=== PATIENT | female | born 1970 | race Caucasian/White ===

== ENCOUNTER 2017-07-07 06:26 | Day surgery (SDC) | payer OTHER ==
[~2017-07-07] VITALS: Ht 162.6 cm; Wt 93.0 kg
--- NOTE | ~2017-07-07 | OP ---
Record Of Operation [facility] [address] [place]. [address] NAME: FACUNDO : 74 STATUS : [facility]#: [id number] AGE: 46 ADM/REG DATE : 07/07/17 MR#: [id number] REPORT SERV DATE: 07/11/17 DICTATED BY: LIZ CARRASCO DATE: 07/11/17 REPORT STATUS : Draft TRANSCRIBED BY: ALEXANDRE DATE: 07/11/17 DATE OF PROCEDURE: 07/07/2017 PREOPERATIVE DIAGNOSIS: Excess skin and laxity of the abdominal and upper arm areas and lipodystrophy, history of massive weight loss. POSTOPERATIVE DIAGNOSIS: Excess skin and laxity of the abdominal and upper arm areas and lipodystrophy, history of massive weight loss. PROCEDURES: 1. Full abdominoplasty with liposuction of the flanks and rectus muscle plication. 2. Liposuction and short scar or minimal resection bilateral upper arm brachioplasty. DRUM STOCK CLERK: Joaquina. ANESTHESIA: General endotracheal anesthesia with 40 mL of ropivacaine TAP block and 40 mL of 1% lidocaine with 1:100,000 epinephrine. TUMESCENT FLUID: 1000 mL. LIPOASPIRATE: 625 mL from the abdomen and 150 mL from the upper arms. URINE OUTPUT: 350 mL. IV FLUIDS: 2100 mL. ESTIMATED BLOOD LOSS: 75 mL. SPECIMENS: Abdominal tissue, right side 2137.7 g, left side 1931.9 g, and right arm tissue 154.7 g, and left arm tissue 125.6 g. All were sent for just gross ID. COMPLICATIONS: None immediate. INDICATIONS FOR PROCEDURE: This is a 46-year-old female who presents today with excess abdominal fat and significant skin laxity as well as upper arm fat and skin laxity that is very concerning to her. She has lost a great deal of weight in the past and is ready to proceed with body contouring. The risks including, but not limited to, bleeding, infection, wound healing issues, blood clots including DVT and PE, scarring especially the upper arm scarring, necrosis, or ischemia with tissue loss, etc., as well as the benefits and alternatives to the procedures listed were addressed with the patient preoperatively. Informed consent was obtained. She agrees to proceed today as outlined. DESCRIPTION OF OPERATION: The patient was marked preoperatively in the holding area outlining the excessive abdominal panniculus as well as the areas of localized lipodystrophy on her flanks. She also had the areas in her upper arms were marked as well. Compression stockings and SCDs were placed and antibiotics were initiated. She was then brought to the Record Of Operation [address] [address] NAME: FACUNDO : 74 STATUS : [facility] PAT#: [id number] AGE: 46 ADM/REG DATE : 07/07/17 MR#: [id number] REPORT SERV DATE: 07/11/17 DICTATED BY: LIZ CARRASCO DATE: 07/11/17 REPORT STATUS : Draft TRANSCRIBED BY: ALEXANDRE DATE: 07/11/17 operating room, placed supine on the operating table with arms extended and all dependent areas adequately padded. After smooth induction of general endotracheal anesthesia and placement of a Santana catheter, her torso from her chin down to the upper thighs was prepped and draped in standard surgical fashion including both upper arms. The abdominal markings were then recreated and measured and completed. Stab incisions were made in the lower lateral abdominal wall with scalpel and tumescent solution was infiltrated into the flank and lateral abdominal areas for liposuction. This was allowed to set for about 15-20 minutes while the incisions were made for the abdominoplasty. This was done using a 10 blade scalpel in the previously placed markings and dissected down to the level of the underlying rectus fascia using electrocautery. The upper abdominal flap was then partially elevated to the area of the umbilicus using electrocautery as well. I did maintain a small thin layer of fat on the most lateral aspect to try to preserve the lymphatics and reduce the seroma rate. Once we got close to the umbilicus area, I then performed a liposuction of bilateral flanks with a #4 Opal cannula, extracting approximately 625 mL and overall improving the waist contour. After liposuction portion was completed, we then used two skin hooks to elevate the umbilicus and an incision was made around it using a 15 blade scalpel. This was extended down to the level of the rectus fascia, maintaining a nice collar of fatty tissue for perfusion using scissor dissection. The upper abdominal flap was then split with a scalpel from the original incision to the umbilicus and further with electrocautery, so as to aid in the of the elevation toward the region of the xiphoid process. The abdominal flap in a central tunnel was then further elevated to allow for plication of the rectus musculature. This was extended up to the level of just superior to the xiphoid process and on top of the lower rib cages superiorly. The rectus diastasis and separation of the rectus muscles was closed using interrupted #0 Nurolon [id number] sutures. This was performed down to the level of the pubic symphysis. Approximately 40 mL of that TAP block with ropivacaine solution was instilled into the rectus musculature as well as the oblique musculature as well using a spinal needle. The area was then irrigated with saline solution and two #15-Macedonian Facundo-Denney drains were placed in the wound and brought out through trocar stab incisions inferior and lateral to the abdominal incision and secured with silk sutures. The table was flexed just slightly and the excess abdominal tissue was pulled inferiorly. The area to be removed was marked, incised with scalpel and dissected with cautery. Excess tissue was passed off the table for weighing and gross pathological analysis. The transverse abdominal incision was then closed in layers with interrupted 2-0 PDS sutures for Sarah fascia reapproximation, followed by a running 2-0 PDS Quill barbed suture for deep dermal and subcutaneous reapproximation. This was then followed by a running intracuticular 3-0 Monocryl barbed suture, V-Loc suture, for epidermal reapproximation. The umbilicus location had been previously marked and was brought out through a shield shaped defect that was created by 15 blade scalpel and dissected with scissors and minimal cautery in the abdominal wall. The new place for the umbilicus was secured using interrupted 3-0 and 4-0 Monocryl sutures. The incisions were cleansed and eventually Mastisol and Steri-Strips as well as sterile dressings and abdominal binder were placed. The umbilicus had Xeroform gauze placed into it and was covered with gauze and tape. The second part of the procedure consisting of the brachioplasty was undertaken starting with liposuction. Stab incisions were made near the elbow using a 15 blade scalpel and tumescent fluid instilled. This was allowed to set for about 7-10 minutes while the Record [facility] [address] [place]. [address] NAME: FACUNDO : 74 STATUS : [facility] PAT#: [id number] AGE: 46 ADM/REG DATE : 07/07/17 MR#: [id number] REPORT SERV DATE: 07/11/17 DICTATED BY: LIZ CARRASCO DATE: 07/11/17 REPORT STATUS : Draft TRANSCRIBED BY: MODRenny DATE: 07/11/17 markings were made for the brachioplasty. This was centered on the bicipital groove, but I wanted the final incision to be about a centimeter or so below to aid in cosmetic hiding of the area. After the tumescent had said for a while, liposuction was performed using a #3 Opal cannula and approximately 150 mL was extracted in total from both arms. After liposuction was completed, the incision started on the right arm by excising the upper portion of the ellipse using the bicipital groove location. This was made with scalpel and extended down to the level of the underlying muscle leaving a rim of thin subcutaneous tissue on the fascia itself so as to protect the lymphatics and nerves. This dissection was completed using electrocautery. The inferior flap was then elevated in that same plane with electrocautery as well. The excess skin was then pulled superiorly toward the bicipital groove area and a elan was placed. The flap was then halved approximately 7 cm and this area was brought up. This was done in incremental excisions to verify that we would have good closure and good contour. This middle area was then anchored with a staple and a similar process was undertaken lateral and medial to that by incremental splitting of the excess tissue flap with knife and cautery. After the final markings had been made, the excess tissue was excised in its entirety and passed off the table. Karrie then ensured that we had good contour of the arm. I then went to the left side and performed exactly the same procedure by doing the liposuction followed by making the upper aspect of the incision just lower than the bicipital groove with scalpel and cautery and dissecting down to the muscle fascia leaving a thin layer of subcutaneous fat intact. The flap was raised inferiorly and the excess skin pulled up multiple times to make sure we had enough tissue released. The flap was then split in the middle aspect in incremental times to ensure that we had good contour and matching the right arm. A staple was placed and then the remainder of the flap was split laterally and medially to that in incremental fashion in a similar way. The excess tissue was then fully marked and excised transversely and passed off the table for pathological analysis. The sites were irrigated and karrie were placed to ensure good contour and matched with the other arm. I measured the circumference of both the upper arms at this time and they were within 2 mm of each other. Therefore, we started with the final closure. To do so, deep 2-0 PDS sutures were placed in sort of deep fascial plane followed by interrupted 3-0 Monocryl in the deep dermal plane, and finally followed by a running 4-0 intracuticular Monocryl suture. Because of the lack of significant space created, I decided not to place drains and instead use compression wraps with Scott bandages. After both sites were closed, I again inspected them for symmetry and rotated the arm in various planes to make sure that we had a good overall appearance that the scar will be somewhat hidden. I thought the end result was fantastic, so therefore the sites were cleansed with Mastisol and Steri-Strips were placed followed by abdominal pads and Scott wraps from the elbow to the axillary area. Of note, patient did not really want any incisions going into the axilla or onto the chest area and therefore is little bit limited in how much tissue resection I could perform, but I feel we have a really good matching result and have cured her from the sort of isolated fat pockets and skin laxity. The patient tolerated the procedure well without any initial sign of complication. She was awakened, extubated, had her Santana catheter removed prior to being transported to the postanesthesia care unit where she was recovering without any sign of difficulties. Sponge and instrument counts were correct and verified at the end of the case. Record Of Operation [place] [id number] [facility] [place]. [address] NAME: : 74 STATUS : [facility]#: [id number] AGE: 46 ADM/REG DATE : 07/07/17 MR#: [id number] REPORT SERV DATE: 07/11/17 DICTATED BY: LIZ CARRASCO DATE: 07/11/17 REPORT STATUS : Draft TRANSCRIBED BY: MODL DATE: 07/11/17 CMM/MODL Liz Carrasco MD / [id number] CC: Liz Carrasco MD
== END 2017-07-07 23:59 | disposition home or self-care (01) ==
LOC: MSC 06:26 → EDBD 07:45 → MSC 07:45
PROVIDERS: Plastic Surgery
PROC: 0J083ZZ Alteration of Abdomen Subcutaneous Tissue and Fascia, Percutaneous Approach (ICD-10-PCS; 2017-07-07)
PROC: 0J0F3ZZ Alteration of Left Upper Arm Subcutaneous Tissue and Fascia, Percutaneous Approach (ICD-10-PCS; 2017-07-07)
PROC: 0J0D3ZZ Alteration of Right Upper Arm Subcutaneous Tissue and Fascia, Percutaneous Approach (ICD-10-PCS; 2017-07-07)
PROC: 0J080ZZ Alteration of Abdomen Subcutaneous Tissue and Fascia, Open Approach (ICD-10-PCS; principal; 2017-07-07 07:45)
DX: L98.7 Excessive and redundant skin and subcutaneous tissue (principal); E88.1 Lipodystrophy, not elsewhere classified; L57.4 Cutis laxa senilis; E66.9 Obesity, unspecified; Z68.35 Body mass index [BMI] 35.0-35.9, adult; Z90.49 Acquired absence of other specified parts of digestive tract; Z90.710 Acquired absence of both cervix and uterus
CPT/HCPCS: A9270-GY; J0690; J1170; J2250; J2710; J2795; J3010